=== PATIENT | female | born 1985 | race Caucasian/White ===

== ENCOUNTER 2023-08-20 23:06 | Inpatient (IN) | payer OTHER ==
[~2023-08-20] VITALS: Ht 157.5 cm; Wt 104.5 kg
[2023-08-20 23:57] LABS: APPEARANCE,URINE CLEAR (CLEAR); BILIRUBIN,URINE NEGATIVE (NEGATIVE); COLOR,URINE COLORLESS (YELLOW); GLUCOSE, URINE (UA) NEGATIVE (NEGATIVE); KETONES,URINE NEGATIVE (NEGATIVE); LEUKOCYTE ESTERASE ,URINE NEGATIVE (NEGATIVE); NITRATE,URINE NEGATIVE (NEGATIVE); OCCULT BLOOD,URINE NEGATIVE (NEGATIVE); PROTEIN,URINE NEGATIVE (NEGATIVE); SPECIFIC GRAVITIY, URINE 1.003 (1.003-1.030); UROBILINOGEN,URINE <=1.0 mg/dL (<=1.0)
[2023-08-21 00:30] LABS: ALANINE AMINOTRANSFERASE 15 U/L (12-78); ALBUMIN 3.3 g/dL (3.4-5.0); ALKALINE PHOSPHATASE 130 U/L (46-116); ANION GAP 7 mmol/L (8-16); ASPARTATE AMINOTRANSFERASE 15 U/L (15-37); BILIRUBIN,TOTAL 0.4 mg/dL (0.1-1.0); CALCIUM, TOTAL 9.1 mg/dL (8.8-10.5); CARBON DIOXIDE 25 mmol/L (22-29); CHLORIDE 90 mmol/L (98-107); CREATININE 0.65 mg/dL (0.60-1.30); GLOMERULAR FILTR. RATE CALC > 60 mL/min (>60); GLUCOSE,RANDOM 98 mg/dL (70-110); POTASSIUM 3.6 mmol/L (3.5-5.1); TOTAL PROTEIN, SERUM 7.4 g/dL (6.4-8.2); UREA NITROGEN, BLOOD 8 mg/dL (7-18)
[2023-08-21 00:36] LABS: SODIUM SERUM 122 mmol/L (136-145)
[2023-08-21 00:38] LABS: ACETAMINOPHEN < 2 mcg/mL (10-30)
[2023-08-21 00:47] LABS: ALCOHOL, BLOOD (SERUM) < 3 mg/dL (0-10)
[2023-08-21 00:51] LABS: ALCOHOL, URINE DRUG SCREEN NEGATIVE (NEGATIVE); AMPHET/METH SCREEN,URINE NEGATIVE (NEGATIVE); BARBITURATE SCREEN, URINE NEGATIVE (NEGATIVE); BENZODIAZEPINES SCREEN,URINE NEGATIVE (NEGATIVE); CANNABINOID SCREEN,URINE NEGATIVE (NEGATIVE); COCAINE SCREEN,URINE NEGATIVE (NEGATIVE); METHADONE SCREEN, URINE NEGATIVE (NEGATIVE); OPIATE SCREEN,URINE NEGATIVE (NEGATIVE); PHENCYCLIDINE SCREEN,URINE NEGATIVE (NEGATIVE)
[2023-08-21 01:06] LABS: BASOPHILS % (AUTO) 0.2 % (0.0-2.0); EOSINOPHILS % (AUTO) 0.2 % (1.0-6.0); HEMATOCRIT 34.6 % (36-46); HEMOGLOBIN 12.2 g/dL (12.0-16.0); LYMPHOCYTES # (AUTO) 1.9 K/uL (1.0-4.8); LYMPHOCYTES % (AUTO) 12.3 % (22.0-44.0); MEAN CORPUSCULAR HGB CONC 35.2 G/dL (31.0-37.0); MEAN CORPUSCULAR VOLUME 88 fL (80-100); MONOCYTES % (AUTO) 6.4 % (2.0-9.0); NEUTROPHILS # (AUTO) 12.3 K/uL (1.8-7.7); NEUTROPHILS % (AUTO) 80.9 % (40.0-70.0); PLATELET COUNT (AUTO) 384 K/uL (150-450); RED BLOOD CELL COUNT(AUTO) 3.92 MIL/uL (4.00-5.20); RED CELL DISTRIBUTION WIDTH 12.9 % (11.5-14.5); WHITE BLOOD COUNT (AUTO) 15.2 K/uL (4.5-11.0)
[2023-08-21] MEDS: SODIUM CHLORIDE 0.9% 1,000 ML IV ONE (01:21)
[2023-08-21] MEDS ORDERED: ONDANSETRON HCL 4 MG/2 ML VIAL IVP PRN (02:00)
[2023-08-21 02:18] LABS: THYROID STIMULATING HORMONE 1.96 uIU/mL (0.36-3.74)
[2023-08-21] MEDS ORDERED: OXCA600T19 PO (02:20)
[2023-08-21] MEDS ORDERED: OLAN5TAB52 PO (02:20)
[2023-08-21] MEDS ORDERED: TOPI100T31 PO (02:20)
[2023-08-21] MEDS ORDERED: [UNRECOGNIZED DRUG - REMARK] BC (02:21)
[2023-08-21 07:02] LABS: SODIUM SERUM 133 mmol/L (136-145)
[2023-08-21 07:08] LABS: ACETAMINOPHEN < 2 mcg/mL (10-30)
[2023-08-21] MEDS: HEPARIN SODIUM,PORCINE 5,000 UNITS/ML VIAL SQ SCH (07:22)
[2023-08-21 08:03] VITALS: BP 108/51; PULSE 101; RESP 18; TEMP 97.8
[2023-08-21] MEDS: DOCUSATE SODIUM 100 MG CAPSULE PO SCH (08:50)
[2023-08-21] MEDS: TOPIRAMATE 100 MG TABLET PO SCH (08:50)
[2023-08-21] MEDS: OXcarbazepine 300 MG TABLET PO SCH ×2 (08:51→21:26)
[2023-08-21] MEDS: INFLUENZA VIRUS VACCINE QVS 2023-24 (6MO+)/PF 60 MCG/0.5 ML SYRINGE IM. ONE (12:01)
[2023-08-21 12:22] VITALS: BP 109/62; PULSE 109; RESP 18; TEMP 98.1
[2023-08-21] MEDS ORDERED: DESMOPRESSIN ACETATE 4 MCG/ML VIAL IVP SCH (13:45)
[2023-08-21] MEDS: DESMOPRESSIN ACETATE 4 MCG/ML VIAL IVP ONE (15:56)
[2023-08-21 16:03] VITALS: BP 114/60; PULSE 102; RESP 18; TEMP 98.1
[2023-08-21 19:45] VITALS: BP 115/55; PULSE 93; RESP 16; TEMP 98.5
[2023-08-21] MEDS: OLANZapine 5 MG TABLET PO SCH (21:48)
[2023-08-21 23:45] VITALS: BP 114/67; PULSE 86; RESP 16; TEMP 98.4
[2023-08-22 04:00] VITALS: BP 108/73; PULSE 83; RESP 16; TEMP 97.9
[2023-08-22 07:34] LABS: BASOPHILS % (AUTO) 0.5 % (0.0-2.0); EOSINOPHILS % (AUTO) 2.1 % (1.0-6.0); HEMATOCRIT 36.2 % (36-46); HEMOGLOBIN 12.5 g/dL (12.0-16.0); LYMPHOCYTES # (AUTO) 2.1 K/uL (1.0-4.8); LYMPHOCYTES % (AUTO) 28.5 % (22.0-44.0); MEAN CORPUSCULAR HEMOGLOBIN 31.3 pg (26.0-34.0); MEAN CORPUSCULAR HGB CONC 34.5 G/dL (31.0-37.0); MEAN CORPUSCULAR VOLUME 91 fL (80-100); MONOCYTES # (AUTO) 0.7 K/uL (0.1-1.0); MONOCYTES % (AUTO) 9.9 % (2.0-9.0); NEUTROPHILS # (AUTO) 4.3 K/uL (1.8-7.7); PLATELET COUNT (AUTO) 394 K/uL (150-450); RED BLOOD CELL COUNT(AUTO) 3.99 MIL/uL (4.00-5.20); RED CELL DISTRIBUTION WIDTH 13.4 % (11.5-14.5); WHITE BLOOD COUNT (AUTO) 7.3 K/uL (4.5-11.0)
[2023-08-22 07:49] LABS: CALCIUM, TOTAL 8.8 mg/dL (8.8-10.5); CHLORIDE 100 mmol/L (98-107); CREATININE 0.63 mg/dL (0.60-1.30); GLOMERULAR FILTR. RATE CALC > 60 mL/min (>60); GLUCOSE,RANDOM 84 mg/dL (70-110); POTASSIUM 3.4 mmol/L (3.5-5.1); SODIUM SERUM 134 mmol/L (136-145); UREA NITROGEN, BLOOD 11 mg/dL (7-18)
[2023-08-22 08:02] LABS: ANION GAP 9 mmol/L (8-16); CARBON DIOXIDE 25 mmol/L (22-29)
[2023-08-22] MEDS: BusPIRone HCL 15 MG TABLET PO SCH (14:04)
[2023-08-22 16:51] VITALS: BP 121/69; PULSE 96; RESP 18; TEMP 98.3
[2023-08-22] MEDS: POTASSIUM CHLORIDE 20 MEQ ER TABLET PO ONE (18:18)
[2023-08-22 19:50] VITALS: BP 115/63; PULSE 99; RESP 18; TEMP 98.5
[2023-08-22] MEDS ORDERED: BusPIRone HCL 15 MG TABLET PO SCH (21:00)
[2023-08-22] MEDS: OLANZapine 10 MG TABLET PO SCH (21:12)
[2023-08-22] MEDS: MIRTAZAPINE 30 MG TABLET PO SCH (21:13)
[2023-08-23 00:04] VITALS: BP 101/64; PULSE 87; RESP 18; TEMP 97.8
[2023-08-23 04:03] VITALS: BP 112/75; PULSE 87; RESP 18; TEMP 97.5
[2023-08-23 07:01] LABS: ANION GAP 10 mmol/L (8-16); CALCIUM, TOTAL 8.6 mg/dL (8.8-10.5); CARBON DIOXIDE 24 mmol/L (22-29); CHLORIDE 102 mmol/L (98-107); CREATININE 0.71 mg/dL (0.60-1.30); GLOMERULAR FILTR. RATE CALC > 60 mL/min (>60); GLUCOSE,RANDOM 88 mg/dL (70-110); PHOSPHORUS 3.6 mg/dL (2.5-4.9); SODIUM SERUM 136 mmol/L (136-145); UREA NITROGEN, BLOOD 6 mg/dL (7-18)
[2023-08-23 07:52] VITALS: BP 117/69; PULSE 90; RESP 18; TEMP 98.1
[2023-08-23 16:42] VITALS: BP 109/78; PULSE 97; RESP 18; TEMP 97.6
[2023-08-23 19:11] VITALS: BP 131/76; PULSE 110; RESP 18; TEMP 98.6
[2023-08-24 02:44] VITALS: BP 101/63; PULSE 83; RESP 18; TEMP 98.1
[2023-08-24 08:00] VITALS: BP 111/70; PULSE 93; RESP 18; TEMP 98
[2023-08-24] MEDS ORDERED: BUSPAR PO (16:00)
[2023-08-24] MEDS ORDERED: topamax PO (16:10)
[2023-08-24] MEDS ORDERED: remeron PO (16:10)
[2023-08-24] MEDS ORDERED: zyprexa IM (16:10)
[2023-08-24] MEDS ORDERED: trileptal PO (16:10)
[2023-08-26 22:06] LABS: IMIPRAMINE (TROFANIL) LEVEL <20 ng/mL (Not Estab.); NORDOXEPIN LEVEL <20 ng/mL (Not Estab.); TOTAL (AMITRIP + NORTRIP) <40 ng/mL (80-200); TOTAL DOXEPIN+NORDOXEPIN <40 ng/mL (50-150); TOTAL IMIPRAMINE+DESIPRAMINE <40 ng/mL (175-300)
== END 2023-08-24 20:20 | DRG 918 ==
LOC: EMS 23:06 → 5S 08-21 05:43 → 6S 08-23 10:32
PROVIDERS: ADMIT Internal Medicine; ATTEND Internal Medicine
DX: T50.902A Poisoning by unspecified drugs, medicaments and biological substances, intentional self-harm, initial encounter (principal); E87.1 Hypo-osmolality and hyponatremia; R65.10 Systemic inflammatory response syndrome (SIRS) of non-infectious origin without acute organ dysfunction; R45.851 Suicidal ideations; Z68.41 Body mass index [BMI] 40.0-44.9, adult; F31.4 Bipolar disorder, current episode depressed, severe, without psychotic features; E66.01 Morbid (severe) obesity due to excess calories; R74.8 Abnormal levels of other serum enzymes; G40.909 Epilepsy, unspecified, not intractable, without status epilepticus; E87.6 Hypokalemia; F20.9 Schizophrenia, unspecified; F41.9 Anxiety disorder, unspecified; Z79.899 Other long term (current) drug therapy; Y92.89 Other specified places as the place of occurrence of the external cause
CPT/HCPCS: 71045; 80048; 80053; 80307; 80337; 81003; 82533; 83735; 83930; 83935; 84100; 84132; 84295; 84300; 84443; 84703; 85025; 93005; 99291; G0480; G0481; J1644; J2597; 36415-L1; 36415-TC